=== PATIENT | male | born 1990 | race African-American/Black ===

== ENCOUNTER 2019-07-28 20:58 | Emergency (ER) | payer SELFPAY ==
[~2019-07-28] VITALS: Ht 175.3 cm; Wt 63.5 kg
[~2019-07-28 20:58] MED LIST: HYDR-2761 PO
[2019-07-28 22:14] VITALS: BP 110/71
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
== END 2019-07-28 23:05 | disposition home or self-care (01) ==
LOC: ER 20:58
DX: S09.90XA Unspecified injury of head, initial encounter (principal); R07.89 Other chest pain; Y04.2XXA Assault by strike against or bumped into by another person, initial encounter; Y93.89 Activity, other specified; Y92.89 Other specified places as the place of occurrence of the external cause; Y99.8 Other external cause status
CPT/HCPCS: 70450; 70486; 71046; 99284-25